=== PATIENT | male | born 1990 | race Caucasian/White ===

== ENCOUNTER 2017-03-19 15:26 | Emergency (ER) | payer SELFPAY ==
[~2017-03-19] VITALS: Ht 167.6 cm; Wt 75.5 kg
[2017-03-19 15:29] VITALS: Ht 167.6 cm; Wt 75.5 kg
--- NOTE | 2017-03-19 15:48 | ERD ---
ER Documentation Chief Complaint Date/Time DATE: 03/19/17 TIME: 15:43 Chief Complaint Laceration/ Puncture of the left hand HPI 26 year old male presenting to ER after accidently shooting nail gun into his left hand earlier today. Patient denies loss of sensation. No numbness or tingling. Able to move all digits on left hand. Patient has pain with movement of first digit. No active bleeding. Patient states it is a 3.75 inch nail. Patient took Tylenol at home. ROS All systems reviewed and are negative except as per history of present illness. Allergies Allergies: Coded Allergies: No Known Allergy (Unverified , 03/19/17) PMhx/Soc Medical and Surgical Hx: pt denies Medical Hx, pt denies Surgical Hx Physical Exam Vitals Vital Signs Date Time Temp Pulse Resp B/P Pulse Ox O2 Delivery O2 Flow Rate FiO2 03/19/17 15:29 98.2 69 20 123/75 98 Physical Exam Const: alert Head: Atraumatic Eyes: Normal Conjunctiva ENT: Normal External Ears, Nose and Mouth. Neck: Full range of motion..~ No meningismus. Resp: Clear to auscultation bilaterally Cardio: Regular rate and rhythm, no murmurs Abd: Soft, non tender, non distended. Normal bowel sounds Skin: No petechiae or rashes Back: No midline or flank tenderness Ext: Nail protruding from soft tissue between 1st and 2nd digit. Sensation fully intact. Capillary refill < 3 seconds Neur: Awake and alert Psych: Normal Mood and Affect Results 24 hrs Current Medications Medications (Trade) Dose Ordered Sig/Belkys Route PRN Reason Start Time Stop Time Status Last Admin Dose Admin Acetaminophen/ Hydrocodone Bitart ([place] (5/325)) 1 tab ONCE ONCE PO 03/19/17 16:00 03/19/17 16:01 DC 03/19/17 15:47 Lidocaine (Xylocaine 1% (Mdv) 20 ml) 20 ml ONCE ONCE SC 03/19/17 16:00 03/19/17 16:01 DC Diphtheria/ Tetanus/Acell Pertussis (Adacel) 0.5 ml ONCE ONCE IM* 03/19/17 16:30 03/19/17 16:31 DC 03/19/17 16:18 Procedures/[place] [id number] Radiology Main Line: [phone] DIAGNOSTIC IMAGING REPORT Patient: MARYLIN MEHTA : 1990 Age: 26 Sex: M MR #: [id number] DOS: 03/19/17 1540 Ordering MD: SANDI HERNANDEZ NP Location: [facility] Room/Bed: PROCEDURE: XR Hand. CLINICAL INDICATION: Pain TECHNIQUE: AP oblique and lateral views of the left hand were obtained. COMPARISON: No prior studies are available for comparison. FINDINGS: There is a tiny avulsion fracture at the base of the first metacarpal. There is soft tissue swelling in the region of the base of the first metacarpal. There is no radiopaque foreign body. There is normal mineralization. There are no significant degenerative changes. RPTAT: AA IMPRESSION: Tiny avulsion fracture at the base of the first metacarpal with associated soft tissue swelling. No radiopaque foreign body. MDM: This is a 26-year-old male presents the ER after shooting a nail gun into left hand earlier today. Patient states he removed nail from his hand immediately after accident. X-ray left hand ordered. Xray reviewed by radiologist as tiny avulsion fracture at the base of the first metacarpal with associated soft tissue swelling. No radiopaque foreign body. Consulted with Dr. Balderas regarding this patient who also examined patient and we agree that patient is appropriate for outpatient management. Tdap administered. Wound cleansed. No surrounding erythema, drainage or warmth. Patient remains afebrile. Vitals are stable. Low suspicion for acute fracture or retained foreign body. Patient is appropriate for outpatient management and instructed to return to the ED or primary care provider in the next 2 days for wound recheck. Return to ED for any high fever, chest pain, difficulty breathing, shortness breath, wheezing, vomiting, diarrhea, abdominal pain or any new or worsening symptoms. Patient verbalizes understanding. All questions answered at discharge. Disclaimer: Inadvertent spelling and grammatical errors are likely due to EHR/ dictation software use and do not reflect on the overall quality of patient care. Also, please note that the electronic time recorded on this note does not necessarily reflect the actual time of the patient encounter. Departure Diagnosis: Primary Impression: Puncture wound Condition: Stable SANDI HERNANDEZ NP Mar 19, 2017 15:48
[2017-03-19] MEDS ORDERED: HYDROCODONE/APAP (5/325) TAB PO ONE (16:00)
[2017-03-19] MEDS ORDERED: LIDOCAINE 1% (MDV) 20 ML INJ SC ONE (16:00)
--- NOTE | 2017-03-19 16:22 | RADRPT ---
PROCEDURE: XR Hand. CLINICAL INDICATION: Pain TECHNIQUE: AP oblique and lateral views of the left hand were obtained. COMPARISON: No prior studies are available for comparison. FINDINGS: There is a tiny avulsion fracture at the base of the first metacarpal. There is soft tissue swelling in the region of the base of the first metacarpal. There is no radiopaque foreign body. There is normal mineralization. There are no significant degenerative changes. RPTAT: AA IMPRESSION: Tiny avulsion fracture at the base of the first metacarpal with associated soft tissue swelling. No radiopaque foreign body. .Ac Ortez MD, MD Date Time Electronically viewed and signed by .Ac Ortez MD, on 03/19/2017 16:21 .S/
[2017-03-19] MEDS ORDERED: DIPHTH/TET/ACEL PERTUSS (ADULT) 0.5 ML VIAL IM* ONE (16:30)
[2017-03-19 16:45] VITALS: BP 128/75; PULSE 74; RESP 20
== END 2017-03-19 16:46 | disposition home or self-care (01) ==
LOC: FTE 15:26
DX: S61.432A Puncture wound without foreign body of left hand, initial encounter (principal); W29.4XXA Contact with nail gun, initial encounter; Y92.9 Unspecified place or not applicable
CPT/HCPCS: 90471; 90715